=== PATIENT | male | born 1960 | race Caucasian/White ===

== ENCOUNTER 2022-08-12 07:07 | Day surgery (SDC) | payer OTHER, SELFPAY ==
[2022-08-12 07:20] VITALS: BP 150/83; PULSE 75; RESP 16; TEMP 36.3; O2SAT 97
[2022-08-12] MEDS: Tropicam./Phenyleph. (1/2.5%) 5 ML BTL OS ×3 (07:30→07:43)
--- NOTE | 2022-08-12 07:40 | ANES.PREOP_ITS ---
General Info Date of Service Date Performed: 08/12/22 Height: 5 ft 9 in Weight: 95.4 kg Body Mass Index (BMI): 31.0 Surgical Procedure: Operation Date: 08/12/22 09:40 Proposed Procedure Side Surgeon p Cataract Extraction with IOL Implant Left Reji Hong MD Meds Allergies and Home Medications Allergies Allergy/AdvReac Type Severity Reaction Status Date / Time No Known Allergies Allergy Unverified 08/09/22 10:22 Home Medication Medication Instructions Recorded albuterol sulfate 90 mcg/actuation 2 puff inhalation Q4H PRN 08/08/22 aerosol inhaler amlodipine 10 mg-valsartan 320 mg 1 tab PO DAILY 08/08/22 tablet atorvastatin 40 mg tablet 40 mg PO DAILY 08/08/22 budesonide-formoterol HFA 80 2 puff inhalation BID 08/08/22 mcg-4.5 mcg/actuation aerosol inhaler (Symbicort) insulin aspart U-100 100 unit/mL 15 sliding scale dose subcut QID 08/08/22 (3 mL) subcutaneous pen (Novolog FlexPen U-100 Insulin aspart) insulin degludec 200 unit/mL (3 50 unit subcut DAILY 08/08/22 mL) subcutaneous pen (Tresiba FlexTouch U-200 insulin) omeprazole 40 mg capsule,delayed 40 mg PO DAILY 08/08/22 release Current Visit Medications: Current Medications Generic Name Dose Route Start Last Admin Trade Name Freq PRN Reason Stop Dose Admin Acetaminophen 1,000 mg 08/12/22 06:00 Acetaminophen 500 Mg Tab PO Q4H PRN PRN Miscellaneous Medication 0 ml 08/12/22 06:00 Prednisolone 1%, Moxifloxacin 0.5%, Nepafenac 0.1% 5ml Btl OS DIRECTED COUNTS INCLUDE 234 BEDS AT THE [facility] Miscellaneous Medication 0 ml 08/12/22 06:00 Tropicam./Phenyleph. (1/2.5%) 5 Ml Btl OS DIRECTED ZOHAIB Tetracaine HCl 0 ml 08/12/22 06:00 Tetracaine 0.5% 4 Ml Btl OS DIRECTED [facility] Active Problems Active Problems: Problem Status Onset Code Asymmetrical sensorineural hearing loss H90.5 Tinnitus H93.19 Sudden-onset sensorineural hearing loss H91.20 Medical History Medical History Allergic rhinitis BPH (benign prostatic hyperplasia) pt. denies Cataracts, bilateral Chronic fatigue syndrome Dermatophytosis Disorder of bilirubin excretion Erectile dysfunction Fibromyositis GERD without esophagitis Hearing loss HLD (hyperlipidemia) Hypertensive disorder Insomnia Moderate persistent asthma MRSA (methicillin resistant Staphylococcus aureus) Muscle strain Prostatitis Sebaceous cyst Tinnitus of left ear Type 1 diabetes Surgical History Surgical History (Updated 08/12/22 @ 07:29 by Sally Pack) History of arthroscopic knee surgery History of carpal tunnel release History of colonoscopy Tobacco Smoking/Tobacco Use Status: Never Alcohol Alcohol Intake: current Alcohol intake frequency: 0-2 drinks per day Alcohol type: beer Substance Use Substance use type: does not use Vital Signs and Lab Results Vital Signs Most Recent Vital Signs in EMR: Most Recent Vital Signs Temp Pulse Resp BP Pulse Ox 36.3 C L 75 16 150/83 H 97 08/12/22 07:20 08/12/22 07:20 08/12/22 07:20 08/12/22 07:20 08/12/22 07:20 Lab Results Blood Type / Crossmatch: No Data to Display Complete Blood Count: No Data to Display Complete Metabolic Panel: No Data to Display Liver Function Panel: No Data to Display Coagulation Panel: No Data to Display Cardiac Panel: No Data to Display Arterial Blood Gas: No Data to Display Venous Blood Gas: No Data to Display Pancreas Panel: No Data to Display Thyroid Panel: No Data to Display Infectious Disease: No Data to Display Blood Cultures: No Data to Display Toxicology Panel: No Data to Display Anesthesia Assessment and Plan Anesthesia History Personal History: No History of Anesthesia Complications Family History: No Family History of Anesthesia Complications Exercise Tolerance Exercise Tolerance: Metabolic Equivalents>4 Pertinent Negatives Pertinent Negatives: No Symptoms of GERD Cardiac & Pulmonary Exam Cardiac Exam: Normal S1/S2 Heart Sounds Pulmonary Exam: Clear Bilateral Breath Sounds Implantable Cardiac Device Does patient have a Pacemaker or an ICD?: No Airway Exam Known Difficult Airway: No Mallampati Class: 1 Mouth Opening: Normal (> 3cm) Thyromental Distance: Greater than 3 cm Neck Range of Motion: Full ROM Neck Circumference: Normal Teeth Condition: Normal Dentition ASA Classification ASA Score: ASA 2 Emergency Case?: No NPO Status NPO Status: NPO Clears >2 hours, Solids >8 hours Anesthesia Plan Resuscitation Status: Full Code Anesthesia Technique: MAC Anesthesia Airway Planned: Natural Airway Monitors Used: Standard Monitors
[2022-08-12 07:42] VITALS: BMI 31.0
[2022-08-12] MEDS: Tetracaine 0.5% 4 ML BTL OS (08:49)
[2022-08-12] MEDS: Lidocaine 2% Jelly 6 ML SYR (08:50)
[2022-08-12] MEDS: Lidocaine 1% Pres-Free 5 ML VIAL (08:55)
[2022-08-12] MEDS: Balanced Salt Soln.-PLUS 500 ML BAG (09:00)
[2022-08-12] MEDS: Duovisc Viscoelastic System EACH 1 EACH (09:01)
[2022-08-12] MEDS: Povidone-Iodine Ophth 30 ML BTL (09:03)
[2022-08-12 09:18] VITALS: BP 159/78; PULSE 80; RESP 16; TEMP 36.3; O2SAT 99
--- NOTE | 2022-08-12 09:22 | W.PM.DSUDISC ---
Date of service: 08/12/22 Time of Service: 09:22 Discharge Plan Disposition Patient Disposition: Home Discharge Details Attending Provider: Reji Hong Primary Care Provider: Johnnie Malcolm Home Meds and New Rx's Prescriptions: No Action atorvastatin 40 mg Tablet 40 mg PO DAILY omeprazole 40 mg Capsule,Delayed Release(Dr/Ec) 40 mg PO DAILY albuterol sulfate 90 mcg/actuation Hfa Aerosol Inhaler 2 puff INHALATION Q4H PRN insulin aspart U-100 [Novolog FlexPen U-100 Insulin] 100 unit/mL (3 mL) Insulin Pen 15 sliding scale dose SUBCUT QID budesonide-formoterol [Symbicort] 80-4.5 mcg/actuation Hfa Aerosol Inhaler 2 puff INHALATION BID amlodipine-valsartan 10-320 mg Tablet 1 tab PO DAILY insulin degludec [Tresiba FlexTouch U-200] 200 unit/mL (3 mL) Insulin Pen 50 unit SUBCUT DAILY Discharge Instructions Stand Alone Forms: Post-op Topical Cataract, Khushi Wei (DSU) Discharge Orders Discharge Orders: Discharge Order (Routine); Ordered 08/12/22 Ordered By: Reji Hong DS: Diagnosis Discharge Diagnosis (1) Nuclear sclerotic cataract of left eye: Status: Resolved
--- NOTE | 2022-08-12 09:23 | ROE_ITS ---
Date of service: 08/12/22 Time of Service: 09:24 Operative Note Operative Note DATE OF PROCEDURE: 08/12/22 PRE-OP DIAGNOSIS: Nuclear cataract, left eye POST-OP DIAGNOSIS: same PROCEDURE: Cataract extraction using phacoemulsification with intraocular lens implant, left eye SURGEON: Reji Hong ANESTHESIA TYPE: Local By Surgeon and MAC Refer to Anesthesia Record PATHOLOGY: none sent COMPLICATIONS: None Patient was transported to: same day Patient's condition: stable Implants: Dawson and Dawson Tecnis Eyhance [id number] Indications: Progressive decreased vision due to cataract, left eye Procedure Description: CATARACT SURGERY OPERATIVE REPORT PREOPERATIVE DIAGNOSIS: 1. Nuclear cataract, left eye POSTOPERATIVE DIAGNOSIS: Same OPERATION: 1. Cataract extraction using phacoemulsification with posterior chamber intraocular lens implant, left eye. IOL: IOL Swimming Pool Plasterer Helper/Model: Dawson & Dawson Tecnis Eyhance DIB00 IOL Power: + 25.5 diopters IOL Serial Number: [id number] Optic Diameter: 6.0 mm Haptic/Overall Diameter: 13.0 mm PHACO INFO: CalvinAurora Spine Vision System with OZil and Active Fluidics Cumulative Dispersed Energy (CDE): 10.8 seconds SURGEON: Reji Hong MD, WARD ANESTHESIA: Monitored A [facility] (MAC), with local sub-tenon's anesthetic infiltration COMPLICATIONS: None SPECIMENS: None INDICATIONS FOR PROCEDURE: The patient is a 62-year-old gentleman with history of diminished visual acuity in his left eye secondary to the development of nuclear cataract. He is significantly symptomatic that he desires cataract surgery and attempt to improve and maximize his vision. The option of cataract surgery was offered to the patient and he wished to proceed. PROCEDURE: The correct surgical eye was identified and marked as the left eye and the pupil was dilated in the preoperative area using mydriatics and cycloplegics. The dilated pupil size was 7.0 mm. The patient elected to proceed without oral sedation. The patient was brought to the operating room w here cardiopulmonary monitoring was instituted and surgical time-out was performed, confirming the correct operative eye and IOL power. Topical anesthesia was administered and ophthalmic povidone-iodine 5% was instilled into the conjunctival fornices. Lidocaine gel was applied to the cornea and the cliff-ocular area was prepped with Betadine 10% solution and draped in the usual sterile fashion for intraocular surgery, including an aperture drape. A Tegaderm transparent film dressing was cut in half and used to cover the lashes and lid margins. Care was taken to sequester the lashes and lid margins under the Tegaderm dressing. A lid speculum was placed between the lids of the operative eye and the Calvin LuxOR Revalia operating microscope was maneuvered into position. Breann scissors were then used to make a conjunctival buttonhole approximately 6mm posterior to the limbus in the inferonasal quadrant. Blunt dissection was carried out to expose bare sclera, and a blunt-tipped sub-tenon?s anesthesia cannula was introduced and passed posteriorly along the globe where non- preserved plain lidocaine was injected into posterior sub-Tenon?s space. A sideport knife was used to make a paracentesis port superiorly/superiortemporally. Intraocular phenylephrine/lidocaine was injected int the anterior chamber.. The anterior chamber was filled with viscoelastic. A keratome knife was used to construct a 2-plane near-clear corneal tunnel extending 2.0mm into clear cornea temporally. A flap was raised on the anterior capsule and capsulorhexis forceps were used to complete a continuous curvilinear capsulorhexis of 5.0 mm. Balanced salt solution was then used to perform cortical cleaving hydrodissection and nuclear hydrodelineation until the lens could be freely rotated within the capsular bag. The lens nucleus was then disassembled and removed within the capsular bag and iris plane using phacoemulsification. Residual cortical material was removed using the 45-degree angled silicone I/A tip with 0.3mm port. The posterior capsule was carefully polished to remove as much residual lens epithelial cells as safely possible. The capsular bag was then inflated and the anterior chamber deepened with viscoelastic. The lens implant described above was inserted into the capsular bag using the Dawson and Dawson Simplicity pre-loaded injector. . A Kuglen hook was used to dial the IOL into position. Residual viscoelastic was then removed first from posterior to the IOL, then from the anterior chamber using the I/A handpiece. The lens implant was noted to center nicely within the capsular bag. The incisions were stromally hydrated, and the anterior chamber was reformed using BSS. Then 0.5cc of moxifloxacin 1.0mg/ml were injected into the capsular bag and anterior chamber. The incisions were checked with a Weck spear and found to be secure. Several drops of ophthalmic povidone-iodine 5% were then applied to the eye followed by two drops of Imprimis combination prednisolone/moxifloxacin/nepafenac solution. The drapes were removed and a clear plastic protective eye shield was placed over the eye. The patient was then returned to Same Day Surgery in stable condition.
--- NOTE | 2022-08-12 09:32 | W.ANESPOSTOP ---
Postoperative Evaluation Date, Time and Location Date Performed: 08/12/22 Time Performed: 09:32 Patient Location: Day Surgery Unit Vital Signs Most Recent Imported Vital Signs: Most Recent Vital Signs Temp Pulse Resp BP Pulse Ox 36.3 C L 80 16 159/78 H 99 08/12/22 09:18 08/12/22 09:18 08/12/22 09:18 08/12/22 09:18 08/12/22 09:18 Pain Score Most Recent Pain Score: Most Recent Pain Score Pain Level 0 08/12/22 09:18 Assessment Mental Status: Awake (Alert & Oriented to Patient Baseline) Airway and Respiratory Function: Patent airway with normal (patient baseline) respiratory exam Cardiovascular Function: Hemodynamically Stable Hydration Status: Adequately Hydrated Nausea & Vomiting: No Nausea or Vomiting Pain: Pt. Denies Any Pain Peripheral Nerve Block: Patient did not receive a nerve block
== END 2022-08-12 09:43 | disposition home or self-care (01) ==
PROVIDERS: PCP Family Medicine; Visit Provider Ophthalmology
PROC: (CPT 66984; principal; 2022-08-12 09:30)
DX: H25.12 Age-related nuclear cataract, left eye (principal)
CPT/HCPCS: 66984; V2632

== ENCOUNTER 2022-08-26 06:15 | Day surgery (SDC) | payer OTHER, SELFPAY ==
[2022-08-26] MEDS: Tropicam./Phenyleph. (1/2.5%) 5 ML BTL OD ×3 (06:48→07:01)
[2022-08-26 06:49] VITALS: BP 161/87; PULSE 80; RESP 18; TEMP 36.7; O2SAT 98
--- NOTE | 2022-08-26 06:50 | HPE_ITS ---
Assessment and Plan Assessment and plan (1) Nuclear age-related cataract, right eye: Status: Acute Assessment and plan: Assessment: Visually significant cataract of the right eye. Plan: Cataract extraction with lens implantation of the right eye. History of Present Illness History of Present Illness Chief Complaint: Decreased vision, right eye Na rrative: The patient is a 62-year-old male with history of progressive decreased vision in both eyes at both distance and near. He has significant difficulty with glare driving at night, and no longer drives at night because of this. He also notes monocular diplopia in the left eye. On examination he was noted to have significant bilateral nuclear cataracts. Uncorrected vision measured 20/150 in both eyes, but was correctable to 20/30 in each eye, although with significant glare disability. The option of cataract surgery was offered to the patient and he wished to proceed. He underwent cataract surgery in the left eye on 08/12/2022 and postoperatively has regained uncorrected visual acuity of 20/25 in the left eye. He now presents for cataract surgery in the right eye. Review of Systems All systems reviewed & are unremarkable except as noted in HPI and below PFSH All Active Problems Asymmetrical sensorineural hearing loss (Acute) Tinnitus (Acute) Sudden-onset sensorineural hearing loss (Acute) Nuclear age-related cataract, right eye (Acute) Medical History Allergic rhinitis BPH (benign prostatic hyperplasia) pt. denies Cataract Cataracts, bilateral Chronic fatigue syndrome Dermatophytosis Disorder of bilirubin excretion Erectile dysfunction Fibromyositis GERD without esophagitis Hearing loss HLD (hyperlipidemia) Hypertensive disorder Insomnia Moderate persistent asthma MRSA (methicillin resistant Staphylococcus aureus) Muscle strain Prostatitis Sebaceous cyst Tinnitus of left ear Type 1 diabetes Surgical History History of arthroscopic knee surgery History of carpal tunnel release History of colonoscopy Hx of cataract removal with insertion of prosthetic lens Social History Smoking/Tobacco Use Status: Never Smoking risk assessment performed?: Yes Alcohol Intake: current Alcohol Intake frequency: 0-2 drinks per day Alcohol type: beer Substance use type: does not use Do you feel safe at home: Yes Do you feel safe in your relationship?: Yes Meds Allergies and Home Medications Allergies Allergy/AdvReac Type Severity Reaction Status Date / Time No Known Allergies Allergy Unverified 08/26/22 06:42 Home Medications Medication Instructions Recorded Confirmed Type albuterol sulfate 90 mcg/actuation 2 puff inhalation Q4H PRN 08/08/22 08/26/22 History aerosol inhaler amlodipine 10 mg-valsartan 320 mg 1 tab PO DAILY 08/08/22 08/26/22 History tablet atorvastatin 40 mg tablet 40 mg PO DAILY 08/08/22 08/26/22 History budesonide-formoterol HFA 80 2 puff inhalation BID 08/08/22 08/26/22 History mcg-4.5 mcg/actuation aerosol inhaler (Symbicort) insulin aspart U-100 100 unit/mL 15 sliding scale dose subcut QID 08/08/22 08/26/22 History (3 mL) subcutaneous pen (Novolog FlexPen U-100 Insulin aspart) insulin degludec 200 unit/mL (3 50 unit subcut DAILY 08/08/22 08/26/22 History mL) subcutaneous pen (Tresiba FlexTouch U-200 insulin) omeprazole 40 mg capsule,delayed 40 mg PO DAILY 08/08/22 08/26/22 History release Exam Eyes Other: Uncorrected visual acuity measures 20/30 in the right eye, 20/25 in the left eye. Intraocular pressure measures 16 OD, 15 OS. Extraocular motility is normal. Slit-lamp examination is significant for narrow anterior chamber angle in the right eye with a moderate brunescent nuclear cataract. In the left eye there is a well-positioned PCIOL with clear posterior capsule. Funduscopic examination is significant for disc cupping of 0.4 OU with normal vessels, macula, peripheral retina and vitreous. Resp Auscultation: clear to auscultation bilaterally Cardio Rate: regular rate Rhythm: regular rhythm
--- NOTE | 2022-08-26 06:59 | W.ANESPRE ---
General Info Date of Service Date Performed: 08/26/22 Height: 5 ft 9 in Weight: 95.6 kg Body Mass Index (BMI): 31.1 Surgical Procedure: Operation Date: 08/26/22 07:40 Proposed Procedure Side Surgeon p Cataract Extraction with IOL Implant Right Reji Hong MD Meds Allergies and Home Medications Allergies Allergy/AdvReac Type Severity Reaction Status Date / Time No Known Allergies Allergy Unverified 08/26/22 06:42 Home Medication Medication Instructions Recorded albuterol sulfate 90 mcg/actuation 2 puff inhalation Q4H PRN 08/08/22 aerosol inhaler amlodipine 10 mg-valsartan 320 mg 1 tab PO DAILY 08/08/22 tablet atorvastatin 40 mg tablet 40 mg PO DAILY 08/08/22 budesonide-formoterol HFA 80 2 puff inhalation BID 08/08/22 mcg-4.5 mcg/actuation aerosol inhaler (Symbicort) insulin aspart U-100 100 unit/mL 15 sliding scale dose subcut QID 08/08/22 (3 mL) subcutaneous pen (Novolog FlexPen U-100 Insulin aspart) insulin degludec 200 unit/mL (3 50 unit subcut DAILY 08/08/22 mL) subcutaneous pen (Tresiba FlexTouch U-200 insulin) omeprazole 40 mg capsule,delayed 40 mg PO DAILY 08/08/22 release Current Visit Medications: Current Medications Generic Name Dose Route Start Last Admin Trade Name Freq PRN Reason Stop Dose Admin Acetaminophen 1,000 mg 08/26/22 06:00 Acetaminophen 500 Mg Tab PO Q4H PRN PRN Miscellaneous Medication 0 ml 08/26/22 06:00 08/26/22 06:53 Tropicam./Phenyleph. (1/2.5%) 5 Ml Btl OD 1 drp DIRECTED ZOHAIB Administration Miscellaneous Medication 0 ml 08/26/22 06:00 Prednisolone 1%, Moxifloxacin 0.5%, Nepafenac 0.1% 5ml Btl OD DIRECTED ZOHAIB Tetracaine HCl 0 ml 08/26/22 06:00 Tetracaine 0.5% 4 Ml Btl OD DIRECTED ZOHAIB PFSH Active Problems Active Problems: Problem Status Onset Code Asymmetrical sensorineural hearing loss H90.5 Tinnitus H93.19 Sudden-onset sensorineural hearing loss H91.20 Nuclear sclerotic cataract of left eye H25.12 Nuclear age-related cataract, right eye H25.11 Medical History Medical History Allergic rhinitis BPH (benign prostatic hyperplasia) pt. denies Cataract Cataracts, bilateral Chronic fatigue syndrome Dermatophytosis Disorder of bilirubin excretion Erectile dysfunction Fibromyositis GERD without esophagitis Hearing loss HLD (hyperlipidemia) Hypertensive disorder Insomnia Moderate persistent asthma MRSA (methicillin resistant Staphylococcus aureus) Muscle strain Prostatitis Sebaceous cyst Tinnitus of left ear Type 1 diabetes Surgical History Surgical History History of arthroscopic knee surgery History of carpal tunnel release History of colonoscopy Hx of cataract removal with insertion of prosthetic lens Tobacco Smoking/Tobacco Use Status: Never Alcohol Alcohol Intake: current Alcohol intake frequency: 0-2 drinks per day Alcohol type: beer Substance Use Substance use: Never Substance use type: does not use Vital Signs and Lab Results Vital Signs Most Recent Vital Signs in EMR: Most Recent Vital Signs Temp Pulse Resp BP Pulse Ox 36.7 C 80 18 161/87 H 98 08/26/22 06:49 08/26/22 06:49 08/26/22 06:49 08/26/22 06:49 08/26/22 06:49 Lab Results Blood Type / Crossmatch: No Data to Display Complete Blood Count: No Data to Display Complete Metabolic Panel: No Data to Display Liver Function Panel: No Data to Display Coagulation Panel: No Data to Display Cardiac Panel: No Data to Display Arterial Blood Gas: No Data to Display Venous Blood Gas: No Data to Display Pancreas Panel: No Data to Display Thyroid Panel: No Data to Display Infectious Disease: No Data to Display Blood Cultures: No Data to Display Toxicology Panel: No Data to Display Anesthesia Assessment and Plan Anesthesia History Personal History: No History of Anesthesia Complications Family History: No Family History of Anesthesia Complications Exercise Tolerance Exercise Tolerance: Metabolic Equivalents>4 Pertinent Negatives Pertinent Negatives: No Symptoms of GERD Cardiac & Pulmonary Exam Cardiac Exam: Normal S1/S2 Heart Sounds and Known Innocent Murmur Pulmonary Exam: Clear Bilateral Breath Sounds Implantable Cardiac Device Does patient have a Pacemaker or an ICD?: No Airway Exam Known Difficult Airway: No Mallampati Class: 1 Mouth Opening: Normal (> 3cm) Thyromental Distance: Greater than 3 cm Neck Range of Motion: Full ROM Neck Circumference: Normal Teeth Condition: Normal Dentition ASA Classification ASA Score: ASA 2 Emergency Case?: No NPO Status NPO Status: NPO Clears >2 hours, Solids >8 hours Anesthesia Plan Resuscitation Status: Full Code Anesthesia Technique: MAC Anesthesia Airway Planned: Natural Airway Monitors Used: Standard Monitors
[2022-08-26 07:04] VITALS: BMI 31.1
--- NOTE | 2022-08-26 07:19 | W.ANESPOSTOP ---
Postoperative Evaluation Date, Time and Location Date Performed: 08/26/22 Time Performed: 08:41 Patient Location: Day Surgery Unit Vital Signs Most Recent Imported Vital Signs: Most Recent Vital Signs Temp Pulse Resp BP Pulse Ox 36.7 C 80 18 161/87 H 98 08/26/22 06:49 08/26/22 06:49 08/26/22 06:49 08/26/22 06:49 08/26/22 06:49 Pain Score Most Recent Pain Score: Most Recent Pain Score Pain Level 0 08/26/22 06:49 Assessment Mental Status: Awake (Alert & Oriented to Patient Baseline) Airway and Respiratory Function: Patent airway with normal (patient baseline) respiratory exam Cardiovascular Function: Hemodynamically Stable Hydration Status: Adequately Hydrated Nausea & Vomiting: No Nausea or Vomiting Pain: Pt. Denies Any Pain Peripheral Nerve Block: Patient did not receive a nerve block
[2022-08-26] MEDS: Lidocaine 1% Pres-Free 5 ML VIAL (07:41)
[2022-08-26] MEDS: Balanced Salt Soln.-PLUS 500 ML BAG (07:42)
[2022-08-26] MEDS: Phenylephrine/Lidocaine (15/10) MG/ML 1 ML VIAL (07:42)
[2022-08-26] MEDS: Povidone-Iodine Ophth 30 ML BTL (07:43)
[2022-08-26] MEDS: Duovisc Viscoelastic System EACH 1 EACH (07:43)
[2022-08-26] MEDS: Lidocaine 2% Jelly 6 ML SYR (07:43)
[2022-08-26] MEDS: Tetracaine 0.5% 4 ML BTL OD (07:45)
[2022-08-26 08:01] VITALS: BP 176/80; PULSE 84; RESP 16; TEMP 36.5; O2SAT 97
--- NOTE | 2022-08-26 08:02 | PDOC.DSDIS_ITS ---
Date of service: 08/26/22 Time of Service: 08:02 Discharge Plan Disposition Condition: Good Discharge Details Attending Provider: Reji Hong Primary Care Provider: Johnnie Malcolm Home Meds and New Rx's Prescriptions: No Action atorvastatin 40 mg Tablet 40 mg PO DAILY omeprazole 40 mg Capsule,Delayed Release(Dr/Ec) 40 mg PO DAILY albuterol sulfate 90 mcg/actuation Hfa Aerosol Inhaler 2 puff INHALATION Q4H PRN insulin aspart U-100 [Novolog FlexPen U-100 Insulin] 100 unit/mL (3 mL) I nsulin Pen 15 sliding scale dose SUBCUT QID budesonide-formoterol [Symbicort] 80-4.5 mcg/actuation Hfa Aerosol Inhaler 2 puff INHALATION BID amlodipine-valsartan 10-320 mg Tablet 1 tab PO DAILY insulin degludec [Tresiba FlexTouch U-200] 200 unit/mL (3 mL) Insulin Pen 50 unit SUBCUT DAILY Discharge Instructions Stand Alone Forms: Post-op Topical Cataract, Khushi Wei (DSU) Activity:: Activity as Tolerated Remove Dressings/Wound Care:: 24 hours Activity:: Activity as Tolerated Diet:: As Tolerated Discharge Orders Discharge Orders: Discharge Order (Routine); Ordered 08/26/22 Ordered By: Reji Hong DS: Diagnosis Discharge Diagnosis (1) Nuclear age-related cataract, right eye: Status: Resolved
--- NOTE | 2022-08-26 08:04 | ROE_ITS ---
Date of service: 08/26/22 Time of Service: 08:04 Operative Note Operative Note DATE OF PROCEDURE: 08/26/22 PRE-OP DIAGNOSIS: Nuclear cataract, right eye POST-OP DIAGNOSIS: same PROCEDURE: Cataract extraction using phacoemulsification with intraocular lens implant, right eye SURGEON: Reji Hong ANESTHESIA TYPE: Local By Surgeon and MAC Refer to Anesthesia Record ESTIMATED BLOOD LOSS: 0 PATHOLOGY: none sent COMPLICATIONS: None Patient was transported to: same day Patient's condition: stable Implants: [employer]nis Eyhance [id number] Indications: Progressive visual loss due to cataract, right eye Procedure Description: CATARACT SURGERY OPERATIVE REPORT PREOPERATIVE DIAGNOSIS: 1. Nuclear cataract, right eye POSTOPERATIVE DIAGNOSIS: Same OPERATION: 1. Cataract extraction using phacoemulsification with posterior chamber intraocular lens implant, right eye. IOL: IOL Lodging Facilities Manager/Model: [employer] T[employer]nis Eyhance DIB00 IOL Power: + 26.0 diopters IOL Serial Number: [id number] Optic Diameter: 6.0mm Haptic/Overall Diameter: 13.0mm PHACO INFO: Calvin[employer]on Vision System with OZil and Active Fluidics Cumulative Dispersed Energy (CDE): 4.99 seconds SURGEON: Reji Hong MD, WARD ANESTHESIA: Monitored Anesthesia Care (MAC), with local sub-tenon's anesthetic infiltration COMPLICATIONS: None SPECIMENS: None INDICATIONS FOR PROCEDURE: The patient is a 62-year-old gentleman with history of diminished visual acuity in his right eye secondary to the development of nuclear cataract. He is significantly symptomatic that he desires cataract surgery and attempt to improve and maximize his vision. He has already undergone cataract surgery in the left eye and is doing well postoperatively. PROCEDURE: The correct surgical eye was identified and marked as the right eye and the pupil was dilated in the preoperative area using mydriatics and cycloplegics. The dilated pupil size was 6.0 mm. The patient elected to proceed without oral sedation. The patient was brought to the operating room where cardiopulmonary monitoring was instituted and surgical time-out was performed, confirming the correct operative eye and IOL power. Topical anesthesia was administered and ophthalmic povidone-iodine 5% was instilled into the conjunctival fornices. Lidocaine gel was applied to the cornea and the cliff-ocular area was prepped with Betadine 10% solution and draped in the usual sterile fashion for intraocular surgery, including an aperture drape. A Tegaderm transparent film dressing was cut in half and used to cover the lashes and lid margins. Care was taken to sequester the lashes and lid margins under the Tegaderm dressing. A lid speculum was placed between the lids of the operative eye and the Calvin Lux[employer] Revalia operating microscope was maneuvered into position. Breann scissors were then used to make a conjunctival buttonhole approximately 6mm posterior to the limbus in the inferonasal quadrant. Blunt dissection was carried out to expose bare sclera, and a blunt-tipped sub-tenon?s anesthesia cannula was introduced and passed posteriorly along the globe where non- preserved plain lidocaine was injected into posterior sub-Tenon?s space. A sideport knife was used to make a paracentesis port inferotemporally. Intraocular phenylephrine/lidocaine was injected into the anterior chamber. The anterior chamber was filled with viscoelastic. A keratome knife was used to construct a 2-plane near-clear corneal tunnel extending 2.0mm into clear cornea superiortemporally. A flap was raised on the anterior capsule and capsulorhexis forceps were used to complete a continuous curvilinear capsulorhexis of 5.0 mm. Balanced salt solution was then used to perform cortical cleaving hydrodissection and nuclear hydrodelineation until the lens could be freely rotated within the capsular bag. The lens nucleus was then disassembled and removed within the capsular bag and iris plane using phacoemulsification. Residual cortical material was removed using the I/A handpiece. The posterior capsule was carefully polished to remove as much residual lens epithelial cells as safely possible. The capsular bag was then inflated and the anterior chamber deepened with viscoelastic. The lens implant described above was inserted into the capsular bag using the [employer] Simplicity pre-loaded injector. A Kuglen hook was used to dial the IOL into position. Residual viscoelastic was then removed first from posterior to the IOL, then from the anterior chamber using the I/A handpiece. The lens implant was noted to center nicely within the capsular bag. The incisions were stromally hydrated, and the anterior chamber was reformed using BSS. Then 0.5cc of moxifloxacin 1.0mg/ml were injected into the capsular bag and anterior chamber. The incisions were checked with a Weck spear and found to be secure. Several drops of ophthalmic povidone-iodine 5% were then applied to the eye followed by two drops of Imprimis combination prednisolone/moxifloxacin/nepafenac solution. The drapes were removed and a clear plastic protective eye shield was placed over the eye. The patient was then returned to [facility] in stable condition.
== END 2022-08-26 08:26 | disposition home or self-care (01) ==
LOC: DSU 08:04 → SUR 10:04
PROVIDERS: PCP Family Medicine; Visit Provider Ophthalmology
PROC: (CPT 66984; principal; 2022-08-26 07:30)
DX: H25.11 Age-related nuclear cataract, right eye (principal)
CPT/HCPCS: 66984; V2632